=== PATIENT | male | born 1960 | race African-American/Black ===

== ENCOUNTER 2017-05-12 19:54 | Emergency (ER) | payer OTHER ==
[~2017-05-12 19:54] MED LIST: Sodium Chloride 0.9% 100 ML BAG ONE; Sodium Chloride Irrig Solution 250 ML BOT ONE
[2017-05-12] MEDS ORDERED: Adacel (T-DAP) 0.5 ML VIAL ONE (20:06)
[2017-05-12] MEDS ORDERED: Ampicillin/Sulbactam 3 GM VIAL ONE (20:09)
[2017-05-12 20:27] LABS: PTT 29.6 SEC (22.9-36.1); Prothrombin Time 13.2 SEC (12.0-14.7)
--- NOTE | 2017-05-12 20:28 | RAD ---
RIGHT HAND 05/12/17 INDICATION: Posttraumatic pain, injury and deformity. FINDINGS: There is a transverse oriented fracture with displacement and angulation centered at the mid shaft p roximal phalanx second digit. IMPRESSION: Displaced fracture involving mid portion proximal phalanx second digit. POS: [facility]
[2017-05-12 20:35] LABS: Hemoglobin 15.5 g/dL (14.0-18.0); Lymphocytes 28 % (21-51); MDiff Complete? YES; Mean Corpuscular HGB CONC 32.8 g/dL (32.0-36.0); Mean Corpuscular Hemoglobin 31.2 pg (27.0-31.0); Mean Corpuscular Volume 94.9 fl (80.0-94.0); Mean Platelet Volume 10.3 fL (7.4-10.4); Monocytes 4 % (0-10); Neutrophil 52 % (42-75); PLT Morphology Comment Appears Adequate; Platelet Count 232 thou/uL (130-400); RBC Distribution Width 11.6 % (11.5-14.5); RBC Morphology Normal; Reactive Lymphocytes 16 % (0-10); Red Blood Cell (RBC) Count 4.96 mill/uL (4.70-6.10); White Blood Cell (WBC) Count 6.8 thou/uL (4.8-10.8)
[2017-05-12 20:38] LABS: ALT (SGPT) 19 U/L (8-55); AST (SGOT) 21 U/L (5-34); Albumin 4.3 g/dL (3.5-5.0); Alkaline Phosphatase 76 U/L (40-150); Anion Gap 15 mmol/L (10-20); BUN (Urea Nitrogen) 8 mg/dL (8.4-25.7); Bilirubin, Total 0.9 mg/dL (0.2-1.2); Calc. Creatinine Clearance 0 mL/min (70-130); Calcium 9.6 mg/dL (7.8-10.44); Carbon Dioxide 25 mmol/L (22-29); Chloride 104 mmol/L (98-107); Estimated GFR-MDRD Greater than 90; Glucose 99 mg/dL (70-105); Potassium 4.1 mmol/L (3.5-5.1); Protein, Total 8.3 g/dL (6.0-8.3); Sodium 140 mmol/L (136-145)
[2017-05-12] MEDS ORDERED: Gentamicin 80 MG/2 ML VIAL ONE ×2 (21:08→21:10)
[2017-05-12] MEDS ORDERED: Ondansetron HCl/PF 4 MG/2 ML Vial ONE (21:18)
[2017-05-12] MEDS ORDERED: Bacitracin Zinc Ointment 30 gm TUBE ONE (21:59)
[2017-05-12] MEDS ORDERED: Bupivacaine PF 0.5% 30 ML VIAL ONE (21:59)
[2017-05-12] MEDS ORDERED: Heparin 10,000 UNITS/1 ML VIAL ONE (21:59)
[2017-05-12] MEDS ORDERED: Dexamethasone 20 MG/5 ML VIAL ONE (21:59)
[2017-05-12] MEDS ORDERED: Sodium Chloride 0.9% 0 ML ONE (21:59)
[2017-05-12] MEDS ORDERED: Lidocaine 1% (PF) 30 ML VIAL ONE (22:00)
== END 2017-05-12 21:30 | disposition short-term general hospital (02) ==
LOC: MADERS 19:54
DX: S67.190A Crushing injury of right index finger, initial encounter (principal); S62.610B Displaced fracture of proximal phalanx of right index finger, initial encounter for open fracture; F17.220 Nicotine dependence, chewing tobacco, uncomplicated; W31.89XA Contact with other specified machinery, initial encounter
CPT/HCPCS: 26725; 80053; 85025; 85610; 85730; 90471; 90715; 96365; 96375; A4216; J0295; J1100; J1580; J1644; J2001; J2270; J2405; J3490; J7050; S0020